=== PATIENT | male | born 1980 | race Caucasian/White ===

== ENCOUNTER 2019-04-09 14:33 | Inpatient (IN) | payer MEDICAID, OTHER ==
--- NOTE | 2019-04-09 14:48 | EDPHY ---
H & P Stated Complaint: coughing up bright red blood blood x 2 weeks. SOB Time Seen by Provider: 04/09/19 14:48 HPI/ROS: CHIEF COMPLAINT: Dyspnea, scant hemoptysis HISTORY OF PRESENT ILLNESS: Patient presents the ED with a 2 week history of dyspnea and scant hemoptysis. The patient has a history of an empyema secondary to pneumonia which was treated surgically approximately 1 and half years ago. The patient does report subjective fever. The patient denies any asymmetric calf pain or swelling. He reports moderate to severe dyspnea on exertion. He does endorse symptoms of pleuritic chest pain. Patient takes no regular medications. He is supposed to use an albuterol inhaler which he has been out of for some time. REVIEW OF SYSTEMS: A comprehensive 10 point review of systems is otherwise negative aside from elements mentioned in the history of present illness. Source: Patient - Personal History Current Tetanus/Diphtheria Vaccine: Yes - Medical/Surgical History Hx Asthma: Yes Hx Chronic Respiratory Disease: No Hx Diabetes: No Hx Cardiac Disease: No Hx Renal Disease: No Hx Cirrhosis: No Hx Alcoholism: No Hx HIV/AIDS: No Hx Splenectomy or Spleen Trauma: No Other PMH: asthma - Social History Smoking Status: Current every day smoker - Physical Exam Exam: General Appearance: Alert, no distress Eyes: Pupils equal and round no pallor or injection ENT, Mouth: Mucous membranes moist Respiratory: Rhonchorous breath sounds bilaterally Cardiovascular: Regular rate and rhythm Gastrointestinal: Abdomen is soft and nontender, no masses, bowel sounds normal Neurological: 5/5 strength all 4 extremities Skin: Warm and dry, no rashes, multiple tattoos Musculoskeletal: Neck is supple nontender Extremities: symmetrical, full range of motion, no clinical evidence of DVT Psychiatric: Patient is oriented X 3, there is no agitation Constitutional: Initial Vital Signs Temperature (C) 38.2 C 04/09/19 14:35 Heart Rate 98 04/09/19 14:35 Respiratory Rate 16 04/09/19 14:35 Blood Pressure 127/67 H 04/09/19 14:35 O2 Sat (%) 91 L 04/09/19 14:35 O2 Delivery Mode Room Air Allergies/Adverse Reactions: No Known Allergies Allergy (Unverified 04/09/19 14:39) Home Medications: Medication Instructions Recorded NK [No Known Home Meds] 04/09/19 Medical Decision Making - Diagnostics Imaging Results: Imaging Impressions Chest/Thorax CTA 04/09/19 15:30 Impression: 1. No evidence of thrombopulmonary embolic disease. 2. Pneumonia in the right upper lobe and right lower lobe with 4.5 cm abscess in the posterolateral right upper lobe centrally in the consolidation. Reactive right hilar lymphadenopathy. Results called and discussed with Dr. Cristopher Zheng on 04/09/2019, 16:59. ED Course/Re-evaluation: Patient presents to the ED with hemoptysis and cough for the past 2 weeks. The patient has a prior history of empyema. The patient denies any TB risk factors. He does have poor dentition. The patient arrives with stable vital signs. He has no evidence of SIRS. The patient was taken for CT scan of the chest which does demonstrate a cavitary pneumonia involving the right lung. I re-evaluated the patient. I consulted with Infectious Disease who recommends a single AFB for completeness sake. The patient will have blood cultures x2 obtained. He will be started on Unasyn. Consultation is made with the hospitalist at 5:00 p.m.. The patient will be placed in a negative pressure. Respiratory precautions have been initiated in the emergency department. The patient will be admitted by Dr. Shakira Schneider. Differential Diagnosis: Differential diagnosis considered includes pulmonary embolism, empyema, pneumonia, lung abscess - Data Points Laboratory Results: Laboratory Results 04/09/19 15:00 04/09/19 15:00 04/09/19 04/09/19 04/09/19 15:00 15:00 15:00 WBC 13.22 10^3/uL H 10^3/uL (3.80-9.50) RBC 3.70 10^6/uL L 10^6/uL (4.40-6.38) Hgb 10.8 g/dL L g/dL (13.7-17.5) Hct 33.5 % L % (40.0-51.0) MCV 90.5 fL fL (81.5-99.8) MCH 29.2 pg pg (27.9-34.1) MCHC 32.2 g/dL L g/dL (32.4-36.7) RDW 12.8 % % (11.5-15.2) Plt Count 375 10^3/uL 10^3/uL (150-400) MPV 8.6 fL L fL (8.7-11.7) Neut % (Auto) 70.0 % % (39.3-74.2) Lymph % (Auto) 18.7 % % (15.0-45.0) [place] % (Auto) 9.5 % % (4.5-13.0) Eos % (Auto) 1.1 % % (0.6-7.6) Baso % (Auto) 0.2 % L % (0.3-1.7) Nucleat RBC Rel Count 0.0 % % (0.0-0.2) Absolute Neuts (auto) 9.27 10^3/uL H 10^3/uL (1.70-6.50) Absolute Lymphs (auto) 2.47 10^3/uL 10^3/uL (1.00-3.00) Absolute Monos (auto) 1.25 10^3/uL H 10^3/uL (0.30-0.80) Absolute Eos (auto) 0.14 10^3/uL 10^3/uL (0.03-0.40) Absolute Basos (auto) 0.03 10^3/uL 10^3/uL (0.02-0.10) Absolute Nucleated RBC 0.00 10^3/uL 10^3/uL (0-0.01) Immature Gran % 0.5 % % (0.0-1.1) Immature Gran # 0.06 10^3/uL 10^3/uL (0.00-0.10) PT 14.9 SEC SEC (12.0-15.0) INR 1.22 H (0.83-1.16) APTT 38.3 SEC H SEC (23.0-38.0) VBG Lactic Acid Sodium 133 mEq/L L mEq/L (135-145) Potassium 4.7 mEq/L mEq/L (3.5-5.2) Chloride 99 mEq/L mEq/L (97-110) Carbon Dioxide 24 mEq/l mEq/l (22-31) Anion Gap 10 mEq/L mEq/L (6-14) BUN 31 mg/dL H mg/dL (7-23) Creatinine 1.4 mg/dL H mg/dL (0.7-1.3) Estimated GFR 57 Glucose 106 mg/dL H mg/dL (70-100) Calcium 9.0 mg/dL mg/dL (8.5-10.4) 04/09/19 14:25 WBC RBC Hgb Hct MCV MCH MCHC RDW Plt Count MPV Neut % (Auto) Lymph % (Auto) [place] % (Auto) Eos % (Auto) Baso % (Auto) Nucleat RBC Rel Count Absolute Neuts (auto) Absolute Lymphs (auto) Absolute Monos (auto) Absolute Eos (auto) Absolute Basos (auto) Absolute Nucleated RBC Immature Gran % Immature Gran # PT INR APTT VBG Lactic Acid 0.7 mmol/L mmol/L (0.7-2.1) Sodium Potassium Chloride Carbon Dioxide Anion Gap BUN Creatinine Estimated GFR Glucose Calcium Medications Given: Discontinued Medications Sodium Chloride (Ns) 1,000 mls @ 0 mls/hr IV ONCE ONE; Wide Open PRN Reason: Protocol Stop: 04/09/19 17:05 Last Admin: 04/09/19 17:34 Dose: 1,000 mls Departure - Departure Disposition: [facility] Inpatient Acute Clinical Impression: Pneumonia, Lung abscess Condition: Fair
[2019-04-09 15:10] LABS: PLATELET COUNT 375 10^3/uL (150-400)
[2019-04-09 15:24] LABS: INR 1.22 (0.83-1.16); PROTIME(PATIENT) 14.9 SEC (12.0-15.0)
[2019-04-09] MEDS ORDERED: IOPAMIDOL (ISOVUE 370) 100 ML BTL IV ONE (16:24)
[2019-04-09] MEDS ORDERED: NS 1,000 ML IV ONE (17:04)
[2019-04-09] MEDS ORDERED: AMPICILLIN/SULBACTAM 3 GM in NS 100 ML IV ONE (17:11)
[2019-04-09] MEDS ORDERED: ACETAMINOPHEN 325 MG TAB PO PRN (18:51)
[2019-04-09] MEDS ORDERED: ONDANSETRON 4 MG/2 ML VIAL IVP PRN (18:51)
[2019-04-09] MEDS: NS 1,000 ML IV SCH (19:03)
--- NOTE | 2019-04-09 19:35 | GHP ---
[f rep st] HISTORY AND PHYSICAL DATE OF ADMISSION: 04/09/2019 CHIEF COMPLAINT: Hemoptysis. HISTORY: The patient is a 38-year-old male who has had shortness of breath and hemoptysis for the st couple of weeks. He has been coughing up blood. He has had right-sided pleuritic chest pain. It is hard for him to take a deep breath. He has had fever. He denies any known TB contacts. He aimee es any international travel. He has been in skilled nursing in the past, but it was many years ago and just for a short period of time. He has had a 20-pound weight loss and decreased p.o. intake. He is depress ed to the point of being unable to work due to his son recently dying at 3 months old. PAST MEDICAL HISTORY: Empyema, status post VATS 1-1/2 years ago. MEDICATIONS: Please see computerized record for full detailed list. ALLERGIES: No known drug allergies. SOCIAL HISTORY: He is down to 2 cigarettes per day. He denies any drug use for many years, other th an marijuana. He works as a electric welder helper. He currently lives with a friend/roommate. REVIEW OF SYSTEMS: Complete review of systems obtained. Review of systems is negative regarding con stitutional, HEENT, GI, pulmonary, cardiovascular, , hematology, skin, musculoskeletal, endocrine, psych, except for positives and negatives as in HPI. FAMILY HISTORY: Reviewed and noncontributory to presenting complaint. PHYSICAL EXAMINATION: GENERAL: Well-developed, well-nourished male, in no acute distress. VITAL SI GNS: Temp 38.2, pulse 66, blood pressure 116/67, satting 96% on room air. EYES: Normal conjunctiva e. Pupils equal, round, reactive to light. ENT: Normal ears and nose. Hearing intact. Normal josee th. Oropharynx moist. NECK: Trachea midline. No thyromegaly. CHEST: Normal effort. LUNGS: Willem ar to auscultation bilaterally. CARDIOVASCULAR: Regular rhythm. No murmur. No lower extremity lolis ma. ABDOMEN: Soft, nontender. No hepatosplenomegaly. SKIN: Warm, dry, intact. No rash. MUSCULO SKELETAL: No cyanosis or clubbing. Strength 5/5 upper and lower extremities. NEURO: Cranial nerve s intact. Normal sensation to light touch. PSYCH: Alert and oriented x3. Normal mood and affect. Normal judgment. Normal memory. LABORATORY DATA: White count 13.22, hematocrit 33.5, platelets 375. Sodium 133, potassium 4.7, chlo ride 99, bicarb 24. BUN 31, creatinine 1.4. Glucose 106. INR is 1.22. CT angiogram of the chest is negative for pulmonary embolus. It shows a right upper lobe pulmonary a bscess, 4.5 cm, with associated pneumonia. This case was personally discussed with Dr. Zheng. He spoke with Dr. Barnes. Recommends IV Unasyn and rule out TB. ASSESSMENT/PLAN: 1. Pneumonia with lung abscess: Will continue IV Unasyn. Will check AFB for tuberculosis. Patient will be in a negative pressure room until that is ruled out. Infectious Disease will see him in con sultation. 2. Acute renal failure: I believe he is dehydrated. We will hydrate with IV fluids. Recheck creat inine in the morning. 3. Depression: This is situational secondary to recent of his son. Will ask for spiritual ca re consult. 4. Code status: Full. 5. Admission status: Will admit to inpatient. Expect greater than 2 midnights given severity of il lness on presentation. 6. Deep venous thrombosis prophylaxis: He is low risk. /[id number]/MODL
[2019-04-09] MEDS: AMPICILLIN/SULBACTAM 3 GM in NS 100 ML IV SCH (23:34)
[2019-04-10] MEDS: NS 1,000 ML IV SCH ×2 (04:16→15:04)
[2019-04-10 04:48] LABS: PLATELET COUNT 406 10^3/uL (150-400)
[2019-04-10] MEDS: AMPICILLIN/SULBACTAM 3 GM in NS 100 ML IV SCH ×3 (05:42→17:25)
[2019-04-10] MEDS ORDERED: GUAIFENESIN/DM 10 ML UDCUP PO PRN (08:29)
[2019-04-10] MEDS ORDERED: IBUPROFEN 200 MG TAB PO PRN (08:29)
--- NOTE | 2019-04-10 08:31 | HOSPPROG ---
Hospitalist Progress Note Assessment/Plan: The patient is a 38-year-old male who presented to the emergency room with shortness and breath and hemoptysis for a few weeks. He has also had some weight lost. 1st encounter chart reviewed * pneumonia with associated lung abscess -on IV Unasyn -AFB studies pending -reviewed his care w Dr Barnes * acute renal failure secondary to dehydration -resolved * depression, situational -recent loss of his son *htn -bp has been elevated, will trend -has not been on treatment * DVT prophylaxis -low risk Subjective: Frantz has no specific complaints, but lung is sore when coughing. Objective: Vital Signs Temp Pulse Resp BP Pulse Ox 36.8 C 70 12 143/92 H 94 04/10/19 07:20 04/10/19 07:20 04/10/19 07:20 04/10/19 07:20 04/10/19 07:20 Laboratory Results 04/10/19 04:21 04/10/19 04:21 04/09/19 04/10/19 04/11/19 05:59 05:59 05:59 Intake Total 1000 Output Total 1250 Balance -250 PT 14.9 SEC (12.0-15.0) 04/09/19 15:00 INR 1.22 (0.83-1.16) H 04/09/19 15:00 - Physical Exam Constitutional: no apparent distress, uncomfortable, other (thin) Eyes: PERRL Ears, Nose, Mouth, Throat: hearing normal Cardiovascular: regular rate and rhythym, no murmur, rub, or gallop Respiratory: no respiratory distress, reduced air movement (right mid lobe) Skin: warm, other (multiple tattoos on arms) Musculoskeletal: full muscle strength Neurologic: AAOx3 Psychiatric: flat affect ICD10 Worksheet Patient Problems: Problems Problem Status Onset Lung abscess Acute Pneumonia Acute
[2019-04-10] MEDS ORDERED: ALBUTEROL 3 ML DEYVIAL IH PRN (08:47)
[2019-04-10] MEDS ORDERED: SODIUM CL FOR INH 10% 15 ML VIAL.NEB IH ONE (09:00)
--- NOTE | 2019-04-10 09:46 | GCON ---
[f rep st] CONSULTATION INFECTIOUS DISEASE CONSULTATION DATE OF CONSULTATION: 04/10/2019 REFERRING PHYSICIAN: Cristopher Zheng MD Source: Review of records and history from patient, who was a reluctant historian. REASON FOR CONSULTATION: Lung abscess. HPI: A 38-year-old male with h/o empyema and VATS in 2016 who presented to the emergency room yesterday with progressive shortness of breath and hemoptysis. Patient reports his symptoms started a couple weeks ago and have been progressive. He has right-sided pleuritic chest pain, subjective fever, night sweats, and a 20-pound weight loss, despite eating normally, without appetite changes. He denies any sick contacts. His hemoptysis has also been going on for a couple weeks. Patient admits to ongoing dental issues, but no recent dental care. He has not been to a physician for over a year. CT in the ER showed large 4 cm cavity in the right upper/right lower lobe with associated consolidation. He denies any known TB contacts, but patient was in senior living in 1999 and in care home in 2013. No international travel. PAST MEDICAL AND SURGICAL HISTORY: Empyema and VATS in November 2016, no microbiologic data available. right hip dysplasia with a right partial hip arthroplasty 02/09/17. ALLERGIES: No known drug allergies. MEDICATIONS: Patient was started on Unasyn 3 g IV q.6H on admission. Other medications were reviewed in the MAR. SOCIAL HISTORY: The patient grew up in [place], [place]. Denies IV drug use. Only uses marijuana. No alcohol. Is a smoker. He is single. No pets. He is a welder gun. Heterosexual. Past HIV tests have been negative. FAMILY HISTORY: Positive for heart disease. REVIEW OF SYSTEMS: A complete 10-point review of systems was performed and is negative except as mentioned in the HPI. The patient denies any headaches, visual changes, neck pain, rashes, GI complaints, and urinary complaints. He does admit to diffuse joint achiness without swelling. PHYSICAL EXAM: VITAL SIGNS: Blood pressure 143/92, heart rate 70, respiratory rate 12, saturation 94% on room air, temperature 36.8, T-max is 38.2 in the emergency room. GENERAL: This is a sleepy, but easily arousable, male in no acute distress but somewhat agitated. HEENT: Conjunctivae are without focal abnormalities. Pupils are reactive bilaterally. Oropharynx, no oral ulcerations or exudates. Obvious general focal poor dentition, but no focal dental caries were noted. NECK: Supple. No lymphadenopathy. CARDIOVASCULAR: Regular rate, no murmurs. CHEST: Basically clear to auscultation. Possible decreased breath sounds mid lung field. No crackles. ABDOMEN: Soft, nontender. No liver or spleen was palpable. Exam was limited by abdominal wall muscles. : No Healy. EXTREMITIES: No joint swelling. The patient has extensive tattoos. No rashes. No peripheral stigmata of endocarditis. SKIN: No rashes. NEUROLOGIC: He is alert and oriented x4. Moving all 4 extremities equally. Cranial nerves are grossly intact. LABORATORY: Creatinine 1.4, today 1.1. White count 13.2 on admission, 11 today. Platelets of 406, hematocrit 39, 80% neutrophils. INR 1.22. HIV pending. Blood cultures were collected in the emergency room 04/09/2019, and are pending. ASSESSMENT AND PLAN: This is a 38-year-old male with a history of empyema without past microbiologic data available, but no known history of MRSA, who presents with a large 4 cm cavity in the right upper/right lower lobe with associated consolidation in the setting of weight loss, night sweats, hemoptysis. The differential includes tuberculosis as well as lung abscess due to aspiration with typical oral pathogens such as Streptococcus. Also in the differential is staphylococcus aureus. Mild ARF on admit, resolved 1. Agree with empiric therapy with Unasyn 3gm IV q6H. Renal function now normal , no dose adjustments needed. 2. Obtain standard sputum and AFB sputum with TB PCR to rule out TB and respiratory precautions until TB is excluded after one negative TB PCR sputum. 3. HIV, hepatitis B, hep C screening. 4. Drug screen Thank you for this consultation. We will continue to follow patient on a daily basis. Care coordinated with Leilani Patterson NP and nursing. GREATER THAN 70 MINUTES SPENT ON THIS PATIENTS CARE, GREATER THAN 50% OF TIME SPENT COUNSELING, EDUCATING, AND COORDINATING CARE REGARDING THE ABOVE MENTIONED PLAN. /[id number]/MODL MTDD
--- NOTE | 2019-04-10 13:04 | PDMN ---
Medical Necessity Medical necessity: Pt meets IP criteria per & MCG M-282 ; est los >2 mn for eval/tx of pneumonia w/acute renal failure & lung abscess w/dyspnea, weight loss & hemoptysis; r/o TB; admit for further workup/monitoring, ID consult, IV abx & IVFs; hx empyema s/p VATS; per H&P & order 04/09/19
[2019-04-10 13:16] LABS: HEPATITIS B CORE AB TOTAL NEGATIVE (NEGATIVE); HEPATITIS B SURFACE ANTIGEN NEGATIVE (NEGATIVE); HEPATITIS C ANTIBODY TOTAL NEGATIVE (NEGATIVE)
--- NOTE | 2019-04-10 14:39 | ASMTCMCOM ---
CM Note CM Note Notes: CM spoke with pt in the room. Pt states he has not worked since 2016 when his three month old son . He was a tack welder. He said the grief affected him in a way he can't explain. He lives with an older woman/roomate who is supportive "sort of like a mom". Pt declined information about grief supports groups or mental health support, but agreed to referral to [facility] which CM made. CM explained that grief can had a strong negative impact on a pt's physical wellness and pt acknowledged health challenges. Pt will need PCP appointment with [facility] on discharge. Anticipate pt will be independent upon discharge. CM to follow. D/C Plan: Independent with [facility] Appointment Date Signed: 04/10/2019 02:38 PM Electronically Signed By:Jeanette Ann
[2019-04-10] MEDS ORDERED: HYDROmorphONE/DILAUDID 1 MG/ML INJ IVP PRN (16:17)
[2019-04-10] MEDS ORDERED: OXYCODONE/APAP 5/325 TAB PO PRN (17:19)
[2019-04-10 20:33] VITALS: BP 148/82
--- NOTE | 2019-04-11 08:03 | GDS ---
[f rep st] DISCHARGE SUMMARY DISCHARGE DIAGNOSES: 1. Pneumonia with associated lung abscess. 2. Acute renal failure secondary to dehydration. 3. Situational depression. 4. Hypertension. HISTORY OF PRESENT ILLNESS: Briefly, the patient is a 38-year-old male who presented to the emergency room with shortness of breath and hemoptysis for a few weeks. He has also had some weight loss. He had a CTA of his chest that was performed, which showed no evidence of a PE. It showed pneumonia in the right upper lobe and right lower lobe with a 4.5 cm abscess on the lateral right upper lobe area. He was seen and evaluated by the infectious disease team and was placed on Unasyn. The initial concern was for TB. His final mycobacterial smear was negative for this. His blood culture preliminary results showed no growth after 36 hours. He left last evening on April 10, 2019 against medical advice. /[id number]/MODL MTDD
== END 2019-04-10 21:20 | disposition left against medical advice (07) | DRG 137 ==
LOC: F3E 18:57
PROVIDERS: ADMIT Internal Medicine; ATTEND Internal Medicine
DX: J85.1 Abscess of lung with pneumonia (principal); N17.9 Acute kidney failure, unspecified; E86.0 Dehydration; I10 Essential (primary) hypertension; F43.21 Adjustment disorder with depressed mood; Z72.0 Tobacco use
CPT/HCPCS: 86704-90; 96365; G0472; G0480; J0295; J1170; J7613; Q9967